=== PATIENT | male | born 1975 | race Caucasian/White ===

== ENCOUNTER 2016-08-09 21:23 | Emergency (ER) | payer SELFPAY ==
[~2016-08-09] VITALS: Ht 177.8 cm; Wt 72.7 kg
[2016-08-09 21:28] VITALS: BP 182/133
== END 2016-08-09 22:12 | disposition left against medical advice (07) ==
LOC: EMS 21:26
DX: I10 Essential (primary) hypertension (principal); Z53.21 Procedure and treatment not carried out due to patient leaving prior to being seen by health care provider